=== PATIENT | male | born 1935 | race Caucasian/White ===

== ENCOUNTER 2017-11-15 18:28 | Observation (INO) | payer MEDICARE, OTHER ==
[2017-11-15 19:35] LABS: Bilirubin Negative (Negative); Blood, Urine Negative (Negative); Clarity CLEAR (Clear); Glucose, Urine (Dipstick) 250 mg/dL (Negative); Leukocyte Negative (Negative); Nitrite Negative (Negative); Protein, Urine (Dipstick) Negative (Neg-Trace); Specific Gravity, Urine 1.012 (1.002-1.036)
[2017-11-15 19:45] LABS: Amphetamine Not Detected (NotDetected); Barbiturates Screen Detected (NotDetected); Benzodiazepine Screen Not Detected (NotDetected); Cocaine Metabolite Screen Not Detected (NotDetected); Medtox Control Line Valid? VALID (VALID); Medtox Reader # READER 1; Methadone Not Detected (NotDetected); Methamphetamine Not Detected (NotDetected); Opiate Screen Not Detected (NotDetected); Oxycodone Screen Not Detected (NotDetected); Phencyclidine (PCP) Not Detected (NotDetected); THC/Cannabinoid Screen Not Detected (NotDetected); Tricyclic Screen Not Detected (NotDetected)
[2017-11-15 19:46] LABS: #Eosinphils 0.2 thou/uL (0.0-0.7); #Lymphocytes 1.9 thou/uL (1.20-3.40); #Monocytes 0.7 thou/uL (0.11-0.59); #Neutrophils 6.7 thou/uL (1.40-6.50); %Basophils 0.2 % (0.0-1.0); %Eosinophils 1.8 % (0.0-10.0); %Lymphocytes 20.2 % (21.0-51.0); %Monocytes 7.7 % (0.0-10.0); %Neutrophils 70.2 % (42.0-75.0); Hemoglobin 13.9 g/dL (14.0-18.0); Mean Corpuscular HGB CONC 34.5 g/dL (32.0-36.0); Mean Corpuscular Hemoglobin 33.1 pg (27.0-31.0); Mean Corpuscular Volume 96.1 fL (78.0-98.0); Mean Platelet Volume 6.3 fL (7.4-10.4); Platelet Count 231 thou/uL (130-400); RBC Distribution Width 11.9 % (11.5-14.5); Red Blood Cell (RBC) Count 4.18 mill/uL (4.70-6.10); White Blood Cell (WBC) Count 9.6 thou/uL (4.8-10.8)
[2017-11-15 19:54] LABS: Acetaminophen Less than 6.0 mcg/mL (10.0-30.0); Alcohol Less than 10 mg/dL (Less than 10); Salicylate Less than 8.0 mg/dL (15.0-30.0)
[2017-11-15 20:00] LABS: Troponin I Less than 0.010 ng/mL (< 0.028)
[2017-11-15 20:02] LABS: ALT (SGPT) 23 U/L (8-55); AST (SGOT) 19 U/L (5-34); Albumin 3.9 g/dL (3.4-4.8); Alkaline Phosphatase 65 U/L (40-150); Anion Gap 9 mmol/L (10-20); BUN (Urea Nitrogen) 20 mg/dL (8.4-25.7); Bilirubin, Total 0.8 mg/dL (0.2-1.2); CK (CPK) 36 U/L (30-200); Calc. Creatinine Clearance 0 mL/min (70-130); Calcium 8.5 mg/dL (7.8-10.44); Carbon Dioxide 25 mmol/L (23-31); Chloride 108 mmol/L (98-107); Estimated GFR-MDRD 62; Globulin 2.3 g/dL (2.4-3.5); Glucose 159 mg/dL (83-110); Potassium 4.3 mmol/L (3.5-5.1); Protein, Total 6.2 g/dL (5.8-8.1); Sodium 138 mmol/L (136-145)
--- NOTE | 2017-11-15 21:10 | CT ---
NONCONTRAST CT HEAD 11/15/17 HISTORY: Altered mental status. Intermittent headache for the past three weeks. COMPARISON: 11/02/17. FINDINGS: Again noted are chronic small vessel ischemic changes and cerebral volume loss similar to the prior e xam. There is no evidence of an acute cortical infarction, hemorrhage, mass effect, or midline shift. Smal l area of diminished attenuation right raul is again present which may be attributable to chronic sma ll vessel ischemic changes as well. There is diffuse cerebral volume loss. The ventricular system is normal in size, shape and position f or the degree of sulcal atrophy. There has been no interval change when compared to the prior exam. D ense vascular calcifications are again seen in the distal vertebral arteries and involving the caroti d siphons. IMPRESSION: 1. No acute intracranial abnormalities demonstrated. 2. Stable chronic small vessel ischemic changes and cerebral volume loss. POS: [facility]
--- NOTE | 2017-11-15 21:23 | RAD ---
PORTABLE AP CHEST X-RAY 11/15/17 HISTORY: Headache for the past three weeks. COMPARISON: 11/14/17. FINDINGS: There ear linear densities at the left lung base probably related to atelectasis. The lungs otherwise appear clear. There is accentuation of the bronchovascular markings and cardiac silhouette due to a shallow depth of inspiration and portable technique. The cardiac silhouette is otherwise within anyi l limits. Vascular calcifications are seen in the thoracic aorta. Chest is overall stable from prior exam. IMPRESSION: Atelectasis left lung base. There is otherwise no acute cardiopulmonary process. POS: [facility]
[2017-11-15] MEDS ORDERED: Bisacodyl 5 MG TAB PO PRN (23:31)
[2017-11-15] MEDS ORDERED: Acetaminophen 650 MG Suppository PR PRN (23:31)
[2017-11-15] MEDS ORDERED: Senokot 8.6 MG TAB PO PRN (23:31)
[2017-11-15] MEDS ORDERED: Guaifenesin DM 100-10/5 ML UDCUP PO PRN (23:31)
[2017-11-15] MEDS ORDERED: Milk Of Magnesia 30 ML UDCUP PO PRN (23:31)
[2017-11-15] MEDS ORDERED: Acetaminophen 325 MG TAB PO PRN (23:31)
[2017-11-15] MEDS ORDERED: Ondansetron HCl/PF 4 MG/2 ML Vial IVP PRN (23:31)
[2017-11-15] MEDS ORDERED: Ondansetron ODT 4 MG TAB PO PRN (23:31)
[2017-11-15 23:53] LABS: Troponin I Less than 0.010 ng/mL (< 0.028)
[2017-11-16 00:46] VITALS: BMI 25.4
[2017-11-16] MEDS: Sodium Chloride 0.9% 1,000 ML IV SCH ×2 (01:10→17:25)
[2017-11-16 02:00] LABS: Troponin I Less than 0.010 ng/mL (< 0.028)
[2017-11-16 06:40] LABS: Troponin I Less than 0.010 ng/mL (< 0.028)
[2017-11-16] MEDS: Enoxaparin Sodium 40 MG/0.4 ML SYRINGE SC SCH (08:48)
[2017-11-16] MEDS ORDERED: Famotidine 20 MG TAB PO SCH ×2 (09:00→21:00)
--- NOTE | 2017-11-16 13:34 | HP ---
CHIEF COMPLAINT: Lethargy. HISTORIAN: The patient's , somewhat reliable. HISTORY OF PRESENT ILLNESS: This is an 82-year-old male with past medical history of Alzheimer disea se, diabetes mellitus type 2, glaucoma presented with lethargy and unresponsiveness. Per family, the patient was sitting in his chair and was found to be unresponsive for about 45 minutes. Per the wif e, the patient was very cold and was not responding to her when she tried to wake him up. Normally, the patient is able to wake up right then when he is sleeping, but this time was different. The states that it lasted for about 45 minutes, so EMS was called. Once EMS came they started putting t he patient in the ambulance, the patient started to respond and patient was wide awake. In addition to the history, the states that the patient also recently in the past had recently been complain ing of headaches which patient was started on Fioricet, which improved the patient's symptoms. Other campos, the patient has not had any recent illnesses and there is no positive sick contacts at home. REVIEW OF SYSTEMS: Positive for generalized weakness and headaches and otherwise as documented in e HPI. All other systems were reviewed and are negative. PAST MEDICAL HISTORY: Alzheimer's disease, diabetes mellitus type 2, glaucoma. PAST SURGICAL HISTORY: Includes parotid gland removal, cataract removal bilaterally. PSYCHIATRIC HISTORY: The patient has dementia, Alzheimer's. SOCIAL HISTORY: The patient lives at home with family. No alcohol use or tobacco use has been docum ented. No illicit drug use. FAMILY HISTORY: Reviewed and noncontributory to this admission. ALLERGIES: Patient is allergic to METFORMIN and PENICILLIN. MEDICATIONS: 1. Donepezil 10 mg. 2. Dorzolamide/Timolol 1 GTT 2 times a daily. 3. Finasteride 5 mg daily. 4. Glipizide 2 times a day before meals. 5. Latanoprost 1 GTT once a day. 6. Pantoprazole 1 tab once a day 40 mg. 7. Ranitidine 1 tab once a day. 8. Simvastatin 40 mg once a day. 9. Spironolactone 25 mg b.i.d. PHYSICAL EXAMINATION: VITAL SIGNS: In the emergency department the patient's blood pressure was 158/70, pulse of 63, respi ratory rate of 18, temperature of 98.4, oxygen saturation of 99. GENERAL APPEARANCE: The patient is lying in bed, very comfortably. Patient is confused, alert, and oriented x0, which per is the patient's baseline. HEENT: Normocephalic, atraumatic. Pupils are equally round and reactive to light. Extraocular move ments are intact. No scleral icterus noted. NECK: Supple, no JVD. Trachea is midline. Mucous membranes are moist. No lymphadenopathy is noted . LUNGS: Clear to auscultation bilaterally. No wheezes, no rales, no rhonchi is appreciated. Bilater al chest wall movement symmetrically. Left-sided tenderness at the lower rib. CARDIOVASCULAR: S1, S2, regular rate and rhythm. No murmurs, no rubs, no gallops appreciated. ABDOMEN: Nontender. Positive bowel sounds, nondistended. No pulsatile masses. No peritoneal signs . BACK: Full range of motion, no tenderness appreciated. EXTREMITIES: Upper and lower extremity 5/5 upper extremity strength, 5/5 lower extremity strength. NEUROLOGIC: Cranial nerves II-XII grossly intact. No focal neurologic deficits appreciated. SKIN: Some abrasion noted on the right knee. Otherwise, warm, dry and intact. PSYCHIATRIC: The patient has history of Alzheimer's, alert, oriented x0. Normal affect. EKG shows a left axis inferior infarct, age indeterminant, [place] interval was 174. CT of the head is negative, no acute changes, no masses, no bleeds. Chest x-ray showed no infiltrate, no pneumothorax, no congestive heart failure, left lung atelectasis . LABORATORY DATA: WBC 9.6, hemoglobin 13.9, hematocrit is 40.2, platelets 231, RDW is 11.9, MCV 96.1. Sodium 138, potassium 4.3, chloride 108, anion gap of 9, carbon dioxide of 25, creatinine is 1.13, BUN is 20. GFR is 62. Glucose is 159. Lactic acid 1.2, AST is 19, ALT 23, alkaline phosphatase 65. Creatinine kinase 36, troponin less than 0.010 x3. Lipase 60. TSH 1.7. Prolactin is 9.41. UA; nitrites negative, leukoesterase negative. Toxicology; the patient has positive barbiturates, otherw ise all are negative. ASSESSMENT AND PLAN: This is an 82-year-old male being admitted for: 1. Syncope, most likely neurocardiogenic cause. At this point, we have ordered orthostatics to be f ollowed up on. The patient is currently awake, alert, however, is confused, which per the is th e patient's baseline. We have consulted Neurology. We will follow up with Neurology. We will give patient gentle hydration as needed and we will get an echo to evaluate for any cardiogenic cause. At this point, we will start patient on his home medications once home medications are reconciled. 2. History of dementia, Alzheimer's type. We will continue patient on home medications. 3. History of diabetes mellitus type 2, controlled. We will keep the patient on insulin sliding sca le. We will hold the patient's glipizide in the hospital. We can start this medication when the pat ient is going home. 4. History of glaucoma. Continue patient on eyedrops and restart these medications once medications have been reconciled. 5. Left rib pain secondary to mechanical fall about 3 weeks ago. At this point, the patient is stab le. The patient is not complaining of significant pain. We will monitor the patient's pain level an d give patient Tylenol IV for pain if needed. 6. Gastrointestinal and DVT prophylaxis. We will do Lovenox and Pepcid.
--- NOTE | 2017-11-16 18:29 | PDOC.PN ---
- Subjective Encounter Start Date: 11/16/17 Encounter Start Time: 18:35 Subjective: f/u for ? syncope vs AMS. Workup negative to date. Appetite -: good. No fevers. More alert per family. - Objective MAR Reviewed: Yes Vital Signs & Weight: Vital Signs (12 hours) Temp Pulse Pulse Pulse Resp BP BP 11/16/17 16:48 98.2 F 64 17 11/16/17 11:31 98.3 F 74 17 11/16/17 09:25 68 72 138/66 147/66 H 11/16/17 07:45 97.6 F 63 18 11/16/17 07:44 97.6 F 63 18 BP BP Pulse Ox 11/16/17 16:48 151/67 H 97 11/16/17 11:31 132/60 97 11/16/17 09:25 11/16/17 07:45 11/16/17 07:44 175/77 H 98 Weight Admit Weight 187 lb 5 oz Weight 187 lb 5 oz I&O: 11/15/17 11/16/17 11/17/17 06:59 06:59 06:59 Intake Total 228 1080 Output Total 350 800 Balance -122 280 Result Diagrams: 11/15/17 19:34 11/15/17 19:34 Additional Labs: Accuchecks 11/16/17 00:39 POC Glucose 127 H Microbiology 11/15/17 19:21 Urine voided Urine Culture - Preliminary NO GROWTH AT 24 HOURS Laboratory Tests 11/15/17 11/15/17 11/15/17 19:21 19:34 19:34 Lactic Acid 1.2 Lipase TSH 3rd Generation 1.7041 Prolactin Ur Barbiturates Screen Detected H Plasma Alcohol 11/15/17 11/15/17 11/15/17 19:34 19:34 19:34 Lactic Acid Lipase 50 TSH 3rd Generation Prolactin 9.41 Ur Barbiturates Screen Plasma Alcohol Less than 10 Radiology Reviewed by me: Yes (CT brain - negative) EKG Reviewed by me: Yes (Tele - SR) Phys Exam - Physical Examination Constitutional: NAD smiling, nods to questions HEENT: PERRLA, sclera anicteric, oral pharynx no lesions Neck: no nodes, no JVD, supple, full ROM Respiratory: no wheezing, no rales, no rhonchi, clear to auscultation bilateral S1, S2 Cardiovascular: RRR, no significant murmur, no rub, gallop Gastrointestinal: soft, non-tender, no distention, positive bowel sounds Musculoskeletal: no edema, pulses present Neurological: normal sensation, moves all 4 limbs A x O x 2 Skin: normal turgor, cap refill <2 seconds Dx/Plan (1) Syncope Code(s): R55 - SYNCOPE AND COLLAPSE Status: Acute Comment: Suspected, potential AMS from iatrogenic effect of Fioricet, continue tele monitoring, MRI and EEG pending, appreciate Neurology assistance (2) Encephalopathy acute Code(s): G93.40 - ENCEPHALOPATHY, UNSPECIFIED Status: Acute Comment: Suspect iatrogenic as outlined in #1 (3) Dementia Code(s): F03.90 - UNSPECIFIED DEMENTIA WITHOUT BEHAVIORAL DISTURBANCE Status: Chronic Qualifiers: Dementia type: Alzheimer's disease Comment: Resume Aricept 10mg HS (4) DM II (diabetes mellitus, type II), controlled Code(s): E11.9 - TYPE 2 DIABETES MELLITUS WITHOUT COMPLICATIONS Status: Chronic Comment: Continue Glipizide, ISS - Plan plan discussed w/ family, PT/OT, social work professor, DVT proph w/SCDs Stable overall -: MRI brain and EEG pending -: D/C Fioricet -: Resume Glipizide -: OOB with PT for functional assessment * 2D echo pending * Likely home in 24h
[2017-11-16] MEDS: Spironolactone 25 MG TAB PO SCH (20:53)
[2017-11-16] MEDS ORDERED: Latanoprost 0.005% Ophth Soln 2.5 ml Bottle EA EYE SCH (21:00)
[2017-11-16] MEDS ORDERED: Simvastatin 40 MG TAB PO SCH (21:00)
[2017-11-16] MEDS ORDERED: Donepezil HCl 10 MG TAB PO SCH (21:00)
--- NOTE | 2017-11-17 07:42 | EKG ---
Test Reason : Blood Pressure : / mmHG Vent. Rate : 061 BPM Atrial Rate : 061 BPM P-R Int : 154 ms QRS Dur : 128 ms QT Int : 414 ms P-R-T Axes : 007 -50 049 degrees QTc Int : 416 ms Normal sinus rhythm Right bundle branch block Left anterior fascicular block Bifascicular block Abnormal ECG Confirmed by DR. Che BLUNT ([id number]) on 11/17/2017 7:42:00 AM Referred By: MARISSA Confirmed By:DR. Che BLUNT
[2017-11-17] MEDS: glipiZIDE 5 MG TAB PO SCH ×2 (08:57→16:54)
[2017-11-17] MEDS: Spironolactone 25 MG TAB PO SCH (08:58)
[2017-11-17] MEDS: Enoxaparin Sodium 40 MG/0.4 ML SYRINGE SC SCH (08:58)
[2017-11-17] MEDS ORDERED: Dorzolamide HCl/Timolol Maleate 2%/0.5% Ophth Soln 10 ml Bottle EA EYE SCH (09:00)
[2017-11-17] MEDS ORDERED: Ubidecarenone 50 MG CAP PO SCH (09:00)
[2017-11-17] MEDS ORDERED: Finasteride 5 MG TAB PO SCH (09:00)
[2017-11-17] MEDS ORDERED: Fluticasone Propionate Nasal Spray 16 gm Bottle NASAL SCH (09:00)
[2017-11-17] MEDS: Sodium Chloride 0.9% 1,000 ML IV SCH (10:30)
--- NOTE | 2017-11-17 12:06 | CON ---
DATE OF CONSULTATION: 11/16/2017 REFERRING PROVIDER: Dr. Paco Suazo. REASON FOR CONSULTATION: Altered mental status. HISTORY OF PRESENT ILLNESS: Mr. Jesus is a pleasant 82-year-old male who has been consulted for evaluation of altered mental status. History is obtained from and daughter who were present at bedside. reports that patient has a history of Alzheimer's dementia. His cognition has been declining in the past one year. She reports that yesterday he had complained of headache, for which he took Fioricet, which did help alleviate his headache. He was sitting in the chair, was not responding. She tried to wake him up, but he was not responding at that time. He did not have any twitching or jerking episodes and that time. He was unresponsive for approximately 45 minutes. As he was not improving, she decided to call EMS. By the time EMS arrived, he started responding and became more alert and came back to his baseline. She reports that he is doing better since he has been in the hospital ; however, the spell that he had was unusual and never has happened before. She states that he has no prior history of seizure disorder or any history of head trauma or [employer] infection. PAST MEDICAL HISTORY: Significant for diabetes, glaucoma, and Alzheimer's dementia. PAST SURGICAL HISTORY: Significant for parotid gland removal, cataract removal bilaterally. SOCIAL HISTORY: He lives at home. He does not smoke cigarettes, drink alcohol , or use illicit drugs. FAMILY HISTORY: Noncontributory. CURRENT MEDICATIONS: Please review MAR. ALLERGIES: Include METFORMIN and PENICILLIN. REVIEW OF SYSTEMS: as mentioned in HPI otherwise negative. PHYSICAL EXAMINATION: VITAL SIGNS: Blood pressure of 151/67, pulse of 64, temperature of 98.2, respirations of 17, O2 sats of 97% on room air. GENERAL: Well developed, well-nourished male in no apparent distress. RESPIRATORY: Clear to auscultation bilaterally. CARDIOVASCULAR: Regular rate and rhythm. NEUROLOGIC: Mental status: The patient is awake, alert, oriented x1. Speech and language: Fluent speech. Cranial nerves: Pupils are 3 mm and reactive. Visual green are intact. External muscles are intact. No nystagmus noted. Face is symmetric. Tongue and uvula are midline. Motor exam showed normal tone and bulk with 5/5 strength in both upper and lower extremities. Sensory: Sensation is intact and symmetric. Deep tendon reflexes, 2+ pulse reflexes in both upper and lower extremities. Babinski: Plantar responses flexion bilaterally. Coordination intact to [id number] and finger tapping bilaterally. LABORATORY DATA: Reviewed, which included CBC, CMP, urinalysis, and urine drug screen, which is significant for hemoglobin 13.9, hematocrit 40.2, glucose of 159, and urine drug screen positive for barbiturates, otherwise negative. IMAGING STUDIES: CT head without contrast was reviewed, which showed no acute intracranial abnormality. IMPRESSION: 1. Altered mental status, likely toxic metabolic encephalopathy. 2. Alzheimer's dementia. ASSESSMENT AND PLAN: Mr. Jesus is a pleasant 82-year-old male who presented with changes in mentation and prolonged episode of unresponsiveness. This is likely secondary to medication side effect. This may have been due to Fioricet. I would recommend obtaining MRI brain without contrast and EEG to rule out other etiologies such as stroke or seizures. If MRI and EEG are normal, the patient is okay to be discharged to home. Continue current medical management. Thank you for your consultation. CAMERON
--- NOTE | 2017-11-17 16:14 | MRI ---
MRI BRAIN NONCONTRAST: DATE: 11-19-27 HISTORY: 82-year-old male with altered mental status, lethargy, and increasing generalized weakness. FINDINGS: The ventricles are normal in size and configuration. There is no restricted diffusion, midline shift or any other mass effect, recent intraaxial hemorrhage, or extraaxial fluid collection. There is a moderate degree of T2-hyperintensities in the cerebral white matter consistent with chronic ischemic white matter changes due to microvascular atherosclerosis. There is advanced brain parenchymal volume loss regarding the bilateral cerebral hemispheres. There is heterogenous signal in place of the norm al flow signal voids at portions of the intracranial left vertebral artery and right carotid siphon, suggestive of stenosis, atherosclerosis, and/or slow flow. IMPRESSION: 1. Moderate to severe atrophy of the cerebrum. 2. Moderate chronic ischemic white matter changes. 3. No acute intracranial findings. rodrigue POS: [facility]
[2017-11-17 16:36] VITALS: BP 182/81; TEMP 98
--- NOTE | 2017-11-18 01:32 | DIS ---
DATE OF ADMISSION: 11/15/2017 DATE OF DISCHARGE: 11/17/2017 DISCHARGE DIAGNOSES: 1. Acute encephalopathy, likely toxic metabolic secondarily to Fioricet. 2. Dementia, advanced Alzheimer's type. 3. Diabetes mellitus type 2, stable. 4. Hypertension. 5. Tension headache. CONSULTATION: Dr. Darline Morales with Neurology Service. PERTINENT LABORATORY DATA AND IMAGING DATA: Basic metabolic profile within normal limits. Lactic ac id level 1.2. LFTs within normal limits. BNP 20, TSH 1.70. Prolactin level 9.41. CBC within anyi l limits. Urine drug screen positive for barbiturates. Urine culture dated 11/15/2017 showed no paula wth at [address] of the brain without contrast dated 11/15/2017 showed no acute intracranial proc ess. Chronic small vessel ischemic changes noted. Portable chest x-ray dated 11/15/2017 showed no a cute cardiopulmonary process. MRI of the brain dated 11/17/2017 showed no acute intracranial process . Chronic ischemic white matter changes with moderate to severe atrophy of the cerebrum. EEG evalua tion 11/17/2017 showed no seizure activity. HOSPITAL COURSE: Patient was observed on the telemetry unit after initially presenting with question able syncopal episode and altered mentation. Patient underwent extensive evaluation including neuro imaging ruling out any evidence of acute CVA or TIA. The patient's metabolic workup was essentially unrevealing. The patient was noted on a recent prescription for Fioricet with side effects consisten t with current presentation. The patient underwent EEG and MRI imaging showing no central neurologic process for seizure activity. The patient was recommended to discontinue Fioricet and remained at b aseline mental status function during the hospital course. The patient overall remained clinically s table, tolerating regular oral intake. I have examined the patient at the time of discharge and disc ussed followup instructions with the patient and family who verbalized understanding and agreement. Patient overall clinically stable and ready for discharge 11/17/2017. DISCHARGE MEDICATIONS: 1. Alphagan 1 drop to each eye b.i.d. 2. Aricept 10 mg p.o. at bedtime. 3. Dorzolamide/timolol 1-2 drops in each eye daily. 4. Proscar 5 mg p.o. daily. 5. Flonase 1 spray in each naris daily. 6. Glipizide 5 mg p.o. b.i.d. 7. Latanoprost 0.005% 1 drop to each eye at bedtime. 8. Whiteface 3 fatty acids 2 grams p.o. daily. 9. Protonix 40 mg p.o. daily. 10. Zantac 300 mg p.o. at bedtime. 11. Zocor 40 mg p.o. at bedtime. 12. Spironolactone 25 mg p.o. b.i.d. 13. Coenzyme Q10 30 mg p.o. daily. FOLLOWUP: The patient will follow up with his primary care provider, Dr. Thom Baig within 7 da ys of discharge. CONDITION ON DISCHARGE: Stable. ACTIVITY: Ad leda. DIET: ADA. CODE STATUS: DO NOT INTUBATE. DISPOSITION: Home 11/17/2017.
--- NOTE | 2017-11-19 22:28 | EKG ---
Test Reason : Blood Pressure : / mmHG Vent. Rate : 064 BPM Atrial Rate : 064 BPM P-R Int : 174 ms QRS Dur : 104 ms QT Int : 414 ms P-R-T Axes : 013 -49 -13 degrees QTc Int : 427 ms Normal sinus rhythm Left axis deviation Inferior-posterior infarct , age undetermined Abnormal ECG Confirmed by KATIE ROGERS, ROB ([id number]), scientific editor VALENTINE LOOMIS ([id number]) on 11/19/2017 10:27:55 PM Referred By: Confirmed By:ROB WILSON MD
== END 2017-11-17 19:30 | disposition home or self-care (01) ==
LOC: ERS 18:28 → 2NO 22:23
PROVIDERS: ADMIT Internal Medicine; ATTEND Internal Medicine
DX: G93.40 Encephalopathy, unspecified (principal); G30.9 Alzheimer's disease, unspecified; F02.80 Dementia in other diseases classified elsewhere, unspecified severity, without behavioral disturbance, psychotic disturbance, mood disturbance, and anxiety; E11.9 Type 2 diabetes mellitus without complications; I10 Essential (primary) hypertension; G44.209 Tension-type headache, unspecified, not intractable; Z79.84 Long term (current) use of oral hypoglycemic drugs; Z79.899 Other long term (current) drug therapy; Z88.0 Allergy status to penicillin; Z88.8 Allergy status to other drugs, medicaments and biological substances
CPT/HCPCS: 70450; 70551; 71045; 80306; 80307; 81003; 82550; 82553; 82962; 83605; 83690; 83880; 84146; 84484 ×4; 87086; 93005 ×2; 95816; 95819; 96360; 96361; 96372 ×2; 97139 ×3; 99285; G0378 ×2; G8978; G8979; G8987; G8988; G8989; 36415; 36416; 80053; 84443; 85025; 93010; A4216; J1650